=== PATIENT | male | born 1980 | race Caucasian/White ===

== ENCOUNTER 2021-07-06 13:09 | Emergency (ER) | payer OTHER ==
[2021-07-06] MEDS ORDERED: Sodium Chloride 0.9% 10 ML Syringe FLUSH PRN (13:29)
--- NOTE | 2021-07-06 13:41 | EDM.PDOC ---
ED HPI GENERAL MEDICAL PROBLEM - General Chief Complaint: Cardiovascular Problem Stated Complaint: BLOOD PRESSURE Time Seen by Provider: 07/06/21 13:22 Source of Information: Reports: Patient, RN Notes Reviewed History Limitations: Reports: No Limitations - History of Present Illness INITIAL COMMENTS - FREE TEXT/NARRATIVE: Patient is a 41-year-old male presenting to the emergency department after being sent here by his primary care provider. He reports that he had his 3-month follow-up appointment today and mention to his provider that he has been having intermittent chest pains for the last 2 months. Pain is not present at this time. He states that he has it almost every day and that it resolves with [id number] pain medications. Denies any shortness of breath associated with this pain. In the clinic, he reports that his blood pressure was initially found to be elevated at 190/114. They did EKG which she states was unremarkable. Reports that prior to coming to ER they rechecked his blood pressure was 150 systolically. Patient currently takes losartan 100 mg daily which he states he did take today. That was last increased about 3 months ago. He denies any active chest pain, cough, shortness of breath, nausea, vomiting, diarrhea, fever, or chills. - Related Data Allergies Allergy/AdvReac Type Severity Reaction Status Date / Time No Known Allergies Allergy Verified 07/06/21 13:19 Home Meds: Home Meds Losartan [Cozaar] 100 mg PO DAILY 07/06/21 [History] SitaGLIPtin [Januvia] 100 mg PO DAILY 07/06/21 [History] buPROPion [Wellbutrin] 100 mg PO DAILY 07/06/21 [History] glipiZIDE [Glucotrol XL] 10 mg PO BID 07/06/21 [History] metFORMIN [Glucophage] 1,000 mg PO BID 07/06/21 [History] Past Medical History Cardiovascular History: Reports: Hypertension Psychiatric History: Reports: Depression Endocrine/Metabolic History: Reports: Diabetes, Type II - Past Surgical History Musculoskeletal Surgical History: Reports: Other (See Below) Other Musculoskeletal Surgeries/Procedures:: Fractured tib/fib, bone spur removed Social & Family History - Family History Family Medical History: No Pertinent Family History - Tobacco Use Tobacco Use Status *Q: Current Every Day Tobacco User Years of Tobacco use: 24 Packs/Tins Daily: 1 - Caffeine Use Caffeine Use: Reports: Coffee - Recreational Drug Use Recreational Drug Use: No ED ROS GENERAL - Review of Systems Review Of Systems: See Below Constitutional: Reports: No Symptoms HEENT: Reports: No Symptoms Respiratory: Reports: No Symptoms Cardiovascular: Reports: Chest Pain (intermittent x 2 months), Blood Pressure Problem. Denies: Dyspnea on Exertion, Lightheadedness, Palpitations, Syncope Endocrine: Reports: No Symptoms GI/Abdominal: Reports: No Symptoms : Reports: No Symptoms Musculoskeletal: Reports: No Symptoms Skin: Reports: No Symptoms Neurological: Reports: No Symptoms Psychiatric: Reports: No Symptoms Hematologic/Lymphatic: Reports: No Symptoms Immunologic: Reports: No Symptoms ED EXAM, GENERAL - Physical Exam Exam: See Below Exam Limited By: No Limitations General Appearance: Alert, WD/WN, No Apparent Distress Respiratory/Chest: No Respiratory Distress, Lungs Clear, Normal Breath Sounds, No Accessory Muscle Use, Chest Non-Tender Cardiovascular: Normal Peripheral Pulses, Regular Rate, Rhythm, No Edema, No Gallop, No JVD, No Murmur, No Rub GI/Abdominal: Normal Bowel Sounds, Soft, Non-Tender, No Organomegaly, No Distention, No Abnormal Bruit, No Mass Neurological: Alert, Oriented, CN II-XII Intact, Normal Cognition, Normal Gait, Normal Reflexes, No Motor/Sensory Deficits Psychiatric: Normal Affect, Normal Mood Skin Exam: Warm, Dry, Intact, Normal Color, No Rash #1 Interpretation EKG Date: 07/06/21 Time: 14:11 Rhythm: NSR Rate (Beats/Min): 101 [place]: Normal P-Wave: Present QRS: Normal ST-T: Normal QT: Normal Course - Vital Signs Last Recorded V/S: Last Vital Signs Temp 97.3 F 07/06/21 13:15 Pulse 115 H 07/06/21 13:15 Resp 16 07/06/21 13:15 BP 166/106 H 07/06/21 13:15 Pulse Ox 97 07/06/21 13:15 - Orders/Labs/Meds Orders: Active Orders 24 hr Category Date Time Status Peripheral IV Insertion Adult [OM.PC] Stat Oth 07/06/21 13:29 Ordered Labs: Laboratory Tests 07/06/21 07/06/21 07/06/21 Range/Units 14:26 14:26 14:26 WBC 8.26 (4.23-9.07) K/mm3 RBC 5.50 (4.63-6.08) M/mm3 Hgb 17.0 (13.7-17.5) gm/dl Hct 48.1 (40.1-51.0) % MCV 87.5 (79.0-92.2) fl MCH 30.9 (25.7-32.2) pg MCHC 35.3 (32.2-35.5) g/dl RDW Std Deviation 42.4 (35.1-43.9) fL Plt Count 222 (163-337) K/mm3 MPV 10.5 (9.4-12.3) fl Neut % (Auto) 58.2 (34.0-67.9) % Lymph % (Auto) 32.8 (21.8-53.1) % [place] % (Auto) 5.1 L (5.3-12.2) % Eos % (Auto) 2.8 (0.8-7.0) Baso % (Auto) 0.7 (0.1-1.2) % Neut # (Auto) 4.81 (1.78-5.38) K/mm3 Lymph # (Auto) 2.71 (1.32-3.57) K/mm3 [place] # (Auto) 0.42 (0.30-0.82) K/mm3 Eos # (Auto) 0.23 (0.04-0.54) K/mm3 Baso # (Auto) 0.06 (0.01-0.08) K/mm3 D-Dimer, Quantitative (0.19-0.50) mg/L Sodium 133 L (136-145) mEq/L Potassium 4.3 (3.5-5.1) mEq/L Chloride 98 (98-107) mEq/L Carbon Dioxide 26 (21-32) mEq/L Anion Gap 13.3 (5-15) BUN 16 (7-18) mg/dL Creatinine 1.0 (0.7-1.3) mg/dL Est Cr Clr Drug Dosing TNP Estimated GFR (MDRD) > 60 (>60) mL/min BUN/Creatinine Ratio 16.0 (14-18) Glucose 365 H (70-99) mg/dL Calcium 9.4 (8.5-10.1) mg/dL Total Bilirubin 0.5 (0.2-1.0) mg/dL AST TNP ALT 68 H (16-63) U/L Alkaline Phosphatase 108 (46-116) U/L Troponin I < 0.017 (0.00-0.056) ng/mL NT-Pro-B Natriuret Pep 34 (0-125) pg/mL Total Protein 7.2 (6.4-8.2) g/dl Albumin 4.3 (3.4-5.0) g/dl Globulin 2.9 gm/dL Albumin/Globulin Ratio 1.5 (1-2) 07/06/21 Range/Units 14:26 WBC (4.23-9.07) K/mm3 RBC (4.63-6.08) M/mm3 Hgb (13.7-17.5) gm/dl Hct (40.1-51.0) % MCV (79.0-92.2) fl MCH (25.7-32.2) pg MCHC (32.2-35.5) g/dl RDW Std Deviation (35.1-43.9) fL Plt Count (163-337) K/mm3 MPV (9.4-12.3) fl Neut % (Auto) (34.0-67.9) % Lymph % (Auto) (21.8-53.1) % [place] % (Auto) (5.3-12.2) % Eos % (Auto) (0.8-7.0) Baso % (Auto) (0.1-1.2) % Neut # (Auto) (1.78-5.38) K/mm3 Lymph # (Auto) (1.32-3.57) K/mm3 [place] # (Auto) (0.30-0.82) K/mm3 Eos # (Auto) (0.04-0.54) K/mm3 Baso # (Auto) (0.01-0.08) K/mm3 D-Dimer, Quantitative < 0.19 L (0.19-0.50) mg/L Sodium (136-145) mEq/L Potassium (3.5-5.1) mEq/L Chloride (98-107) mEq/L Carbon Dioxide (21-32) mEq/L Anion Gap (5-15) BUN (7-18) mg/dL Creatinine (0.7-1.3) mg/dL Est Cr Clr Drug Dosing Estimated GFR (MDRD) (>60) mL/min BUN/Creatinine Ratio (14-18) Glucose (70-99) mg/dL Calcium (8.5-10.1) mg/dL Total Bilirubin (0.2-1.0) mg/dL AST ALT (16-63) U/L Alkaline Phosphatase (46-116) U/L Troponin I (0.00-0.056) ng/mL NT-Pro-B Natriuret Pep (0-125) pg/mL Total Protein (6.4-8.2) g/dl Albumin (3.4-5.0) g/dl Globulin gm/dL Albumin/Globulin Ratio (1-2) Meds: Medications Discontinued Medications Generic Name Dose Route Start Last Admin Trade Name Freq PRN Reason Stop Dose Admin Influenza Virus Vaccine 60 mcg 07/06/21 13:45 07/06/21 15:13 Flu Vacc [id number] 36mos Up/Pf 60 Mcg/0.5 Ml Syringe IM 07/06/21 13:46 60 mcg .ONCE ONE Administration Sodium Chloride 10 ml 07/06/21 13:29 Sodium Chloride 0.9% 10 Ml Syringe FLUSH ASDIRECTED PRN Keep Vein Open - Re-Assessments/Exams Free Text/Narrative Re-Assessment/Exam: Patient is a 41-year-old male presenting to the emergency department from his primary care provider's clinic with concerns of elevated blood pressure as well as intermittent chest pains for the last 2 months. Pain is not present at this time. Blood pressure was initially elevated at 166/106, however subsequent reading was 141/97. I have ordered blood work, EKG, chest x-ray. 07/06/21 15:50 Hematology significant for sodium slightly low at 133, glucose elevated at 365. Troponin and D-dimer are undetectably low. Chest x-ray shows slight density within the right upper lung. Difficult to exclude minimal area of pneumonia patient has infectious symptoms. Please correlate. Chest x-ray otherwise unremarkable. Patient has no infectious symptoms. He denies any cough or shortness of breath. EKG shows normal sinus rhythm at 101. Results discussed with patient. I would recommend he call his primary care provider as soon as he leaves to set up follow-up on his blood sugar as well as discuss outpatient stress test. He verbalized understanding of this. Discharge instructions as documented. Departure - Departure Time of Disposition: 15:52 Disposition: Home, Self-Care 01 Condition: Good Clinical Impression: Atypical chest pain, Hyperglycemia Hypertension Qualifiers: Hypertension type: unspecified Qualified Code(s): I10 - Essential (primary) hypertension Instructions: Hyperglycemia, [id number], Nonspecific Chest Pain, Adult, [id number], Hypertension, Adult, [id number] Referrals: Jennifer Castellanos [Ordering Only Provider] - Forms: ED Department Discharge Additional Instructions: You were seen in the emergency department today for evaluation of elevated blood pressure in the clinic as well as intermittent chest pains for the last 2 months. Work-up included blood work, EKG, chest x-ray. Results of your work-up were found to be normal. You are not having a heart attack. You do not have a blood clot in your lungs. Your blood sugar was elevated in the emergency department. Recommend contacting your primary care provider to set up a follow- up appointment as soon as possible for reevaluation of your diabetic medications as well as to discuss outpatient stress test. Should you develop any new or worsening symptoms, please not hesitate to return to the emergency department for reevaluation. Sepsis Event Note (ED) - Evaluation Sepsis Screening Result: No Definite Risk - Focused Exam Vital Signs: Vital Signs Temp Pulse Resp BP Pulse Ox 07/06/21 13:15 97.3 F 115 H 16 166/106 H 97 - My Orders Last 24 Hours: My Active Orders 07/06/21 13:29 Peripheral IV Insertion Adult [OM.PC] Stat - Assessment/Plan Last 24 Hours: My Active Orders 07/06/21 13:29 Peripheral IV Insertion Adult [OM.PC] Stat
[2021-07-06] MEDS ORDERED: FLU Vacc QS2021-22 36MOS UP/PF 60 MCG/0.5 ML Syringe IM ONE (13:45)
--- NOTE | 2021-07-06 14:09 | CR ---
Chest: PA and lateral views of the chest were obtained. Comparison: No prior chest imaging is available. Heart size and mediastinum are within normal limits. Slight parenchymal density is seen within the right upper lung. Lungs otherwise are clear. Bony structures are within normal limits for the patient's age. Impression: 1. Slight density within the right upper lung. Difficult to exclude minimal area of pneumonia if patient has infectious symptoms. Please correlate. 2. Two-view chest x-ray is otherwise unremarkable. Diagnostic code #3
== END 2021-07-06 16:02 | disposition home or self-care (01) ==
LOC: JD.ED 13:09
DX: R07.89 Other chest pain (principal); E11.65 Type 2 diabetes mellitus with hyperglycemia; I10 Essential (primary) hypertension; Z23 Encounter for immunization; Z72.0 Tobacco use; Z79.84 Long term (current) use of oral hypoglycemic drugs; Z79.899 Other long term (current) drug therapy
CPT/HCPCS: 36415; 71046; 71046-26; 80053; 83880; 84484; 85025; 85379; 90686; 93005; 99285-25; G0008